=== PATIENT | female | born 1985 | race African-American/Black ===

== ENCOUNTER 2017-02-06 09:11 | Emergency (ER) | payer BC, OTHER ==
[~2017-02-06] VITALS: Ht 162.6 cm; Wt 90.7 kg
[2017-02-06] MEDS ORDERED: HYDR-971 PO (09:38)
[2017-02-06] MEDS ORDERED: AMOX500C PO (09:38)
--- NOTE | 2017-02-06 09:39 | PHYS DOC ---
Past Medical History Past Medical History: No Pertinent History Past Surgical History: Other Additional Past Surgical Histo: hernia surgery Alcohol Use: Occasionally Drug Use: Marijuana Adult General Chief Complaint Chief Complaint: DENTAL PROBLEM HPI HPI Patient is a 31 year old female who presents emergency Department with complaint of atraumatic right-sided dental pain for the past 3 days. Patient admits that she has a history of poor dental health. She denies any recent dental procedures within antibiotics. She denies any fevers or chills. She denies throat pain or difficulty swallowing. Review of Systems Review of Systems Constitutional: Denies fever or chills [] Eyes: Denies change in visual acuity, redness, or eye pain [] HENT: Denies nasal congestion or sore throat [] Respiratory: Denies cough or shortness of breath [] Cardiovascular: No additional information not addressed in HPI [] GI: Denies abdominal pain, nausea, vomiting, bloody stools or diarrhea [] : Denies dysuria or hematuria [] Musculoskeletal: Denies back pain or joint pain [] Integument: Denies rash or skin lesions [] Neurologic: Denies headache, focal weakness or sensory changes [] Endocrine: Denies polyuria or polydipsia [] Allergies Allergies Allergies Coded Allergies Type Severity Reaction Last Updated Verified No Known Drug Allergies 02/06/17 No Physical Exam Physical Exam Constitutional: Well developed, well nourished, no acute distress, non-toxic appearance. [] HENT: Normocephalic, atraumatic, bilateral external ears normal, oropharynx moist, no oral exudates, nose normal. There is no trismus. There is widespread caries and very stages of decay. They have concern is the right and uvular region where the first and second molars are decayed to the gumline. There is gingival inflammation without a fluctuant pocket or purulent drainage suggestive of an abscess. Eyes: PERRLA, EOMI, conjunctiva normal, no discharge. [] Neck: Normal range of motion, no tenderness, supple, no stridor. [] Cardiovascular:Heart rate regular rhythm, no murmur [] Lungs & Thorax: Bilateral breath sounds clear to auscultation [] Abdomen: Bowel sounds normal, soft, no tenderness, no masses, no pulsatile masses. [] Skin: Warm, dry, no erythema, no rash. [] Back: No tenderness, no CVA tenderness. [] Extremities: No tenderness, no cyanosis, no clubbing, ROM intact, no edema. [] Neurologic: Alert and oriented X 3, normal motor function, normal sensory function, no focal deficits noted. [] Psychologic: Affect normal, judgement normal, mood normal. [] Current Patient Data Vital Signs Vital Signs Date Time Temp Pulse Resp B/P Pulse Ox O2 Delivery O2 Flow Rate FiO2 02/06/17 09:20 98.4 90 16 100 Room Air 98.4 EKG EKG [] Radiology/Procedures Radiology/Procedures [] Course & Med Decision Making Course & Med Decision Making Pertinent Labs and Imaging studies reviewed. (See chart for details) [] Dragon Disclaimer Dragon Disclaimer This electronic medical record was generated, in whole or in part, using a voice recognition dictation system. Departure Departure Impression: Primary Impression: Dental caries Disposition: HOME, SELF-CARE Condition: GOOD Referrals: NO PCP (PCP) Patient Instructions: Dental Caries-Brief Additional Instructions: 1. Take the medication as prescribed. 2. Review the discharge instructions for self-care and reasons to return to the emergency department. 3. Use the dental handout that has a list of clinics in dental schools that may address your dental care needs. Be sure to start calling this afternoon to schedule an appointment. Scripts Hydrocodone/Apap 5-325 (Mitchell 5-325 Tablet)1 Each Tablet1 Tab PO PRN Q6HRS PRN PAIN #15 TAB Prov:FRACISCO ROSS 02/06/17 Amoxicillin 500 Mg [id number] Mg PO TID #30 CAP Prov:FRACISCO ROSS 02/06/17 FRACISCO ROSS Feb 06, 2017 09:39
[2017-02-06 09:44] VITALS: BP 140/62
== END 2017-02-06 09:57 | disposition home or self-care (01) ==
LOC: ER 09:11
DX: K02.9 Dental caries, unspecified (principal); F12.10 Cannabis abuse, uncomplicated
CPT/HCPCS: 99283

== ENCOUNTER 2021-08-18 19:01 | Emergency (ER) | payer SELFPAY ==
[~2021-08-18] VITALS: Ht 162.6 cm; Wt 100.0 kg
[2021-08-18 19:01] VITALS: BP 148/92
[~2021-08-18 19:01] MED LIST: AMOX500C PO; HYDR-3164 PO
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
[2021-08-18] MEDS ORDERED: LORazepam 0.5 MG TABLET PO ONE (19:30)
--- NOTE | 2021-08-19 02:51 | EKG ---
[facility] [address] [place] [address] Test Date: 2021-08-18 Test Time: 19:08:44 Pat Name: ALVINO RANGEL Department: Room: Gender: F Hemstitcher: : 1985 Requested By: JAMAL WELSH Order Number: [id number] Reading MD: Frandy Mars Measurements Intervals [place] Rate: 101 P: 80 NH: 136 QRS: 36 QRSD: 88 T: 13 QT: 364 QTc: 473 Interpretive Statements SINUS TACHYCARDIA Electronically Signed On 08-24-2021 13:02:30 CDT by Frandy Mars
== END 2021-08-18 19:42 | disposition home or self-care (01) ==
LOC: ER 19:01
DX: R07.89 Other chest pain (principal); F41.0 Panic disorder [episodic paroxysmal anxiety]; R00.0 Tachycardia, unspecified
CPT/HCPCS: 93005; 99283